=== PATIENT | female | born 1960 | race Caucasian/White ===

== ENCOUNTER → 2016-07-31 | Outpatient (CLI) | payer OTHER ==
--- NOTE | 2016-07-31 09:27 | MR ---
EXAMINATION TYPE: MR hip RT wo con DATE OF EXAM: 07/31/2016 9:08 AM COMPARISON: NONE HISTORY: unilateral primary osteoarthristis, right hip pain, swelling, limited movement x 6 mths Standard multiplanar, multisequence MRI departmental protocol Multiplanar, multisequence images of the right hip were acquired. FINDINGS: There is moderate degenerative narrowing of the right hip joint space. There is attenuation of the bowser barticular cartilage. Within the superior acetabular rim there is a subchondral cyst formation. Camille appear to be intact. There is spur formation about the margins of the femoral head and neck greatest at its lateral component resulting in a degree of femoral acetabular impingement. There is no eviden ce for fracture or osseous destructive lesion. No soft tissue masses are seen. No sizable joint effus ion. Mild degenerative narrowing left hip noted. No evidence for pelvic mass or free fluid. IMPRESSION: Degenerative osteoarthritis right hip with a degree of femoral acetabular impingement suspected.
== END | disposition home or self-care (01) ==
LOC: RADMRIMAIN 08:12
PROVIDERS: ATTEND Internal Medicine Rheumatology
DX: M16.11 Unilateral primary osteoarthritis, right hip (principal)

== ENCOUNTER → 2017-04-27 | Outpatient (CLI) | payer OTHER ==
--- NOTE | 2017-04-27 10:11 | MR ---
EXAMINATION TYPE: MR lumbar spine wo con DATE OF EXAM: 04/27/2017 COMPARISON: NONE HISTORY: Low back pain radiating to the right lower extremity TECHNIQUE: Multiplanar, multisequence images of the lumbar spine were acquired. L1-L2: Normal disc appearance without desiccation. No herniation, protrusion or disc bulging. No ca nal stenosis is present. Foramina are patent bilaterally. L2-L3: Normal disc appearance without desiccation. No herniation, protrusion or disc bulging. No ca nal stenosis is present. Foramina are patent bilaterally. L3-L4: There is a broad-based disc bulge, eccentric to the right with right-sided annular tear creati ng mild right neural foraminal narrowing. Left neural foramen and spinal canal are patent. The eccent margaret disc bulge projects far right laterally and abuts the exiting L3 nerve. This is seen on axial T2- weighted nonfat sat image 11 through 13. L4-L5: There is a right eccentric disc bulge and facet arthropathy creating mild to moderate right ne ural foraminal narrowing. Left neural foramen is patent. Ligamentum flavum hypertrophy in addition to the broad-based disc bulge contribute to mild spinal canal stenosis on image 7 of axial T1/T2 weight ed sequences. L5-S1: Normal disc appearance without desiccation. No herniation, protrusion or disc bulging. No ca nal stenosis is present. Foramina are patent bilaterally. Lumbar demonstrate normal vertebral body heights and alignment. Conus medullaris has a normal appeara nce and terminates at L2. Bone marrow signal is within normal limits. IMPRESSION: 1. No focal disc herniation. 2. Right eccentric disc bulge at L3-L4 with annular tear abutting the exiting L3 nerve root from the right lateral recess, far laterally. There is resultant mild right neural foraminal narrowing. 3. Right eccentric disc bulge at L4-L5 creating mild to moderate right neural foraminal narrowing and mild spinal canal stenosis.
== END | disposition home or self-care (01) ==
LOC: RADMRIMAIN 08:09
PROVIDERS: ATTEND Psychiatry & Neurology Neurology
DX: M48.061 Spinal stenosis, lumbar region without neurogenic claudication (principal); M99.73 Connective tissue and disc stenosis of intervertebral foramina of lumbar region; M51.26 Other intervertebral disc displacement, lumbar region; Z88.5 Allergy status to narcotic agent
CPT/HCPCS: 72148

== ENCOUNTER 2017-12-22 06:08 | Day surgery (SDC) | payer OTHER ==
[2017-12-16 11:47] VITALS: BMI 25.0
[2017-12-22] MEDS ORDERED: SODIUM CHLORIDE 0.9% 1,000 ML in EMPTY BAG 1 BAG IV ONE (06:44)
[2017-12-22] MEDS ORDERED: ALPRAZolam 0.25 MG TAB PO PRN (06:44)
[2017-12-22] MEDS ORDERED: ATORVASTATIN 80 MG TAB PO STA (06:44)
[2017-12-22] MEDS ORDERED: ASPIRIN 325 MG TAB PO STA (06:44)
[2017-12-22] MEDS ORDERED: NITROGLYCERIN SL TABS 0.4 MG TAB SUBLINGUAL PRN (06:44)
[2017-12-22] MEDS ORDERED: ALPRAZolam 0.5 MG TAB PO PRN (06:44)
[2017-12-22 07:16] LABS: Basophils # (A) 0.1 k/uL (0-0.2); Basophils % (A) 1 %; Eosinophils # (A) 0.2 k/uL (0-0.7); Eosinophils % (A) 2 %; HCT 40.8 % (34.0-46.0); HGB 13.6 gm/dL (11.4-16.0); Lymphocytes # (A) 2.6 k/uL (1.0-4.8); Lymphocytes % (A) 26 %; MCHC 33.3 g/dL (31.0-37.0); MCV 96.1 fL (80.0-100.0); Mean Platelet Volume 7.4; Monocytes # (A) 0.8 k/uL (0-1.0); Monocytes % (A) 8 %; Neutrophils % (A) 62 %; Platelet Count 270 k/uL (150-450); RBC 4.25 m/uL (3.80-5.40); RDW 12.9 % (11.5-15.5); WBC 9.7 k/uL (3.8-10.6)
[2017-12-22] MEDS ORDERED: ASPIRIN 81 MG PO ONE (07:17)
[2017-12-22] MEDS ORDERED: SODIUM CHLORIDE 0.9% 1,000 ML IV ONE (07:18)
[2017-12-22 07:21] LABS: Anion Gap 9 mmol/L; Blood Urea Nitrogen 23 mg/dL (7-17); Calcium 9.5 mg/dL (8.4-10.2); Carbon Dioxide 21 mmol/L (22-30); Chloride 110 mmol/L (98-107); Glucose 101 mg/dL (74-99); Potassium 4.7 mmol/L (3.5-5.1); Sodium 140 mmol/L (137-145)
[2017-12-22 07:47] VITALS: TEMP 97.9
[2017-12-22] MEDS: MIDAZOLAM 2 MG/2 ML VIAL IVP ONE ×2 (08:48→08:55)
[2017-12-22] MEDS ORDERED: LIDOCAINE 1% INJ 10MG/ML (20 ML MDV) SQ ONE (08:49)
[2017-12-22] MEDS: VERAPAMIL SYRINGE (5 MG/10 ML) INTRAARTER ONE ×2 (08:49→09:00)
[2017-12-22] MEDS ORDERED: fentaNYL (PF) 50 MCG/ML 2 ML AMP IVP ONE (08:55)
[2017-12-22] MEDS ORDERED: IOPAMIDOL-370 125ML BTL INJ ONE (09:00)
[2017-12-22] MEDS ORDERED: RX INFO: IV CONTRAST WAS GIVEN 1 EACH MISC MISCELLANE PRN (09:03)
[2017-12-22] MEDS ORDERED: SODIUM CHLORIDE 0.9% 1,000 ML IV SCH (09:15)
--- NOTE | 2017-12-22 11:32 | CC ---
CARDIAC CATHETERIZATION REPORT DATE OF SERVICE: 12/22/17 PERFORMING PHYSICIAN: Anurag Santana MD, chemistry account manager. PROCEDURE PERFORMED: 1. Selective right and left coronary angiogram. 2. Left heart catheterization. INDICATION: This is a pleasant 57-year-old female patient with hypertension and dyslipidemia, was experiencing intermittent episodes of chest discomfort quite concerning for severe underlying coronary artery disease. Because of that, heart catheterization was advised. APPROACH: Right radial artery. COMPLICATION: None. LEVEL OF SEDATION: Moderate, sedation length of 12 minutes. PROCEDURE DESCRIPTION: After obtaining an informed consent, the patient was brought to cardiac screedman/laborer. The right radial artery was cannulated. Using micropuncture technique and a micropuncture wire passed easily then I placed a 6-Khmer sheath in the right radial artery. After that, I did selective right and left coronary angiogram using JR4 and JL 3.5 catheters. Left heart catheterization was performed using JR4 catheter. The procedure was completed without complications. LEFT CORONARY ANGIOGRAM: 1. The RCA is a moderate caliber vessel and it is a dominant vessel. It is angiographically normal. 2. The left main is a short left main but angiographically normal and bifurcates into the circumflex and left anterior descending artery. 3. The left circumflex is a idpaxkvn-ce-cayvy caliber vessel and it is a dominant vessel. The proximal circ is normal. The mid circ is normal and gives rise into a large OM branch which seems to be angiographically normal. The circ distally is normal and bifurcates into PDA and PLV branches. 4. The LAD: The proximal LAD is normal. It gives rise into a diagonal branch which seems to be angiographically normal. The mid and distal LAD are angiographically normal. HEMODYNAMICS: The left ventricular end-diastolic pressure was 12 mmHg and no gradient was identified across the aortic valve. CONCLUSION: 1. Normal coronary angiogram. 2. Normal left ventricular end-diastolic pressure. POSTPROCEDURE MANAGEMENT: Medical treatment and follow up with the patient. MMODL / IJN: [id number] /
[2017-12-22 13:27] VITALS: BP 99/54; PULSE 74; RESP 18
== END 2017-12-22 14:15 | disposition home or self-care (01) ==
LOC: CATHCVL 06:08
PROVIDERS: ATTEND Internal Medicine Interventional Cardiology
DX: I25.110 Atherosclerotic heart disease of native coronary artery with unstable angina pectoris (principal); I10 Essential (primary) hypertension; E78.00 Pure hypercholesterolemia, unspecified; F17.210 Nicotine dependence, cigarettes, uncomplicated; Z82.49 Family history of ischemic heart disease and other diseases of the circulatory system; Z79.890 Hormone replacement therapy; Z79.899 Other long term (current) drug therapy
CPT/HCPCS: 93458; 80048; 85025; C1894; J2250; J2001; J3010; J1644; Q9967

== ENCOUNTER 2018-04-16 04:34 | Emergency (ER) | payer OTHER ==
[2018-04-16 05:03] VITALS: TEMP 99.3
--- NOTE | 2018-04-16 05:47 | XR ---
EXAMINATION TYPE: XR Hip Complete RT DATE OF EXAM: 04/16/2018 COMPARISON: NONE HISTORY: Right hip pain TECHNIQUE: 2 views FINDINGS: There is spurring of the acetabulum. Sacroiliac joint appears normal. There is spurring of the femoral head. There is no evidence for fracture. Right hemipelvis is intact. IMPRESSION: There is hypertrophic osteoarthritis of the right hip joint. No fracture seen.
[2018-04-16] MEDS ORDERED: KETOROLAC 60 MG/2 ML VIAL IM STA (06:08)
[2018-04-16] MEDS ORDERED: ORPHENADRINE 30 MG/ML 2 ML VIAL IM STA (06:08)
--- NOTE | 2018-04-16 06:39 | ED ---
General Adult HPI - General Chief complaint: Extremity Injury, Lower Stated complaint: Hip Pain Time Seen by Provider: 04/16/18 05:13 Source: patient, family Mode of arrival: wheelchair Limitations: no limitations - History of Present Illness Initial comments: This patient is a 57-year-old woman who presents to be evaluated for right low back pain radiating to the hip and buttock. The patient states that she had noticed the pain when she woke up. She thought that she may have slept funny. The pain did not resolve in the interval after she woke up so she mentioned to her uncle who felt that she should be seen here. The patient was able ambulate at home though she states that bending seem to make the pain get worse. She describes it as constant, aching. She did try some cold therapy but it did not seem to relieve the pain much. Patient denies any other symptoms, including no fever or chills, no swelling in the hip no erythema or rash. Onset/Timin -: hour(s) Location: right, lower extremity Quality: aching Consistency: intermittent Improves with: none Worsens with: movement Associated Symptoms: denies other symptoms Treatments Prior to Arrival: cold therapy - Related Data Home Medications Medication Instructions Recorded Confirmed Ascorbic Acid [Vitamin C] 500 mg PO TID 12/16/17 04/16/18 Aspirin [Adult Low Dose Aspirin EC] 81 mg PO DAILY 12/16/17 04/16/18 Atorvastatin Calcium [Lipitor] 80 mg PO HS 12/16/17 04/16/18 Cholecalciferol (Vitamin D3) 2,000 unit PO DAILY 12/16/17 04/16/18 [Vitamin D3] Ibuprofen [Motrin] 800 mg PO DAILY 12/16/17 04/16/18 Levothyroxine Sodium [Synthroid] 50 mcg PO DAILY 12/16/17 04/16/18 Loratadine 10 mg PO DAILY 12/16/17 04/16/18 Metoprolol Tartrate [Lopressor] 12.5 mg PO BID 12/16/17 04/16/18 Pyridoxine HCl (Vitamin B6) 100 mg PO DAILY 12/16/17 04/16/18 [Vitamin B-6] Vitamin B Complex 1 each PO DAILY 12/16/17 04/16/18 Vitamin E 1,000 unit PO DAILY 12/16/17 04/16/18 Previous Rx's Medication Instructions Recorded Ibuprofen [Motrin] 600 mg PO Q8HR PRN #20 tab 04/16/18 Methocarbamol [Robaxin-750] 750 mg PO TID PRN #30 tablet 04/16/18 predniSONE 20 mg PO BID #8 tab 04/16/18 Allergies Allergy/AdvReac Type Severity Reaction Status Date / Time No Known Allergies Allergy Verified 04/16/18 05:03 Review of Systems ROS Statement: Those systems with pertinent positive or pertinent negative responses have been documented in the HPI. ROS Other: All systems not noted in ROS Statement are negative. Constitutional: Denies: fever, chills, weakness Respiratory: Denies: cough, dyspnea Cardiovascular: Denies: chest pain, palpitations, edema Gastrointestinal: Denies: abdominal pain, nausea, vomiting Musculoskeletal: Reports: as per HPI, back pain Skin: Denies: rash Neurological: Denies: headache, weakness, numbness Past Medical History Past Medical History: Blood Disorder, CVA/TIA, Hyperlipidemia, Thyroid Disorder Additional Past Medical History / Comment(s): TIA -2007,hemochromatosis, hip pain r/t bursitis -injections History of Any Multi-Drug Resistant Organisms: None Reported Past Surgical History: Section, Cholecystectomy Past Anesthesia/Blood Transfusion Reactions: No Reported Reaction Past Psychological History: Anxiety Smoking Status: Current every day smoker Past Alcohol Use History: None Reported Past Drug Use History: None Reported - Past Family History Mother Family Medical History: No Reported History General Exam Limitations: no limitations General appearance: alert, in no apparent distress Head exam: Present: atraumatic, normocephalic Neck exam: Present: normal inspection, full ROM. Absent: tenderness Respiratory exam: Present: normal lung sounds bilaterally. Absent: respiratory distress, wheezes, rales, rhonchi, stridor Cardiovascular Exam: Present: regular rate, normal rhythm, normal heart sounds. Absent: systolic murmur, diastolic murmur, rubs, gallop GI/Abdominal exam: Present: soft. Absent: tenderness Extremities exam: Present: normal inspection, full ROM, normal capillary refill. Absent: pedal edema, calf tenderness Right Hip exam: Present: normal inspection, full ROM. Absent: tenderness, swelling, abrasion, laceration, ecchymosis, deformity, crepitus, dislocation, erythema, external rotation, internal rotation, shortening Upper Leg exam: Present: normal inspection, full ROM. Absent: tenderness, swelling Foot/Toe exam: Present: normal inspection, full ROM. Absent: tenderness, swelling, abrasion, laceration Neurovascular tendon exam: Present: no vascular compromise Back exam: Present: paraspinal tenderness. Absent: CVA tenderness (R), CVA tenderness (L), vertebral tenderness Neurological exam: Present: alert, reflexes normal. Absent: motor sensory deficit Skin exam: Present: warm, dry, intact, normal color. Absent: rash Course Vital Signs 04/16/18 04:57 Temperature 99.3 F Pulse Rate 103 H Respiratory 22 Rate Blood Pressure 110/78 O2 Sat by Pulse 98 Oximetry Medical Decision Making - Medical Decision Making Patient's 57-year-old woman with low back into the hip pain. There is no erythema, warmth or decreased range of motion concerning for septic arthritis. The history and physical exam consistent with lumbar radiculopathy. The patient did have significant relief of symptoms with medication here. Discussed appropriate further care and follow-up. Discussed return parameters. Disposition Clinical Impression: Sciatic nerve pain Disposition: HOME SELF-CARE Condition: Fair Instructions: Lumbar Radiculopathy (ED) Prescriptions: Ibuprofen [Motrin] 600 mg PO Q8HR PRN #20 tab PRN Reason: Pain Methocarbamol [Robaxin-750] 750 mg PO TID PRN #30 tablet PRN Reason: pain predniSONE 20 mg PO BID #8 tab Is patient prescribed a controlled substance at d/c from ED?: No Referrals: Pamela Cameron MD [Primary Care Provider] - 1-2 days
[2018-04-16 07:00] VITALS: BP 131/66; PULSE 90; RESP 16
== END 2018-04-16 06:48 | disposition home or self-care (01) ==
LOC: EC 04:34
DX: M54.41 Lumbago with sciatica, right side (principal); M54.16 Radiculopathy, lumbar region; E78.5 Hyperlipidemia, unspecified; E07.9 Disorder of thyroid, unspecified; F17.200 Nicotine dependence, unspecified, uncomplicated; Z87.39 Personal history of other diseases of the musculoskeletal system and connective tissue; Z86.73 Personal history of transient ischemic attack (TIA), and cerebral infarction without residual deficits; Z79.82 Long term (current) use of aspirin; Z79.1 Long term (current) use of non-steroidal anti-inflammatories (NSAID); Z79.899 Other long term (current) drug therapy
CPT/HCPCS: 73502; 99283; 96372 ×2; J2360; J1885